=== PATIENT | female | born 1960 | race Asian ===

== ENCOUNTER 2024-11-16 14:00 | Emergency (ER) | payer OTHER ==
[2024-11-16] MEDS ORDERED: KETOROLAC TROMETHAMINE 30 MG/1 ML VIAL ONE (14:37)
[2024-11-16] MEDS ORDERED: LIDOCAINE 5% TOPICAL PATCH ONE (14:38)
[2024-11-16] MEDS: LIDOCAINE 5% TOPICAL PATCH TP ONE (14:45)
[2024-11-16] MEDS: KETOROLAC TROMETHAMINE 30 MG/1 ML VIAL IM ONE (14:46)
[2024-11-16] MEDS ORDERED: METHOCARBAMOL 500 MG TABLET ONE (15:30)
[2024-11-16] MEDS: METHOCARBAMOL 500 MG TABLET PO ONE (15:32)
[2024-11-16 17:10] VITALS: BP 167/80; PULSE 86; RESP 18; TEMP 98.1
[2024-11-16] MEDS ORDERED: LIDOCAINE PATCH REMOVAL MC ONE (22:00)
== END 2024-11-16 17:33 | disposition home or self-care (01) ==
LOC: FER 14:00
PROC: 3E0233Z Introduction of Anti-inflammatory into Muscle, Percutaneous Approach (ICD-10-PCS; principal; 2024-11-16)
DX: M54.6 Pain in thoracic spine (principal)
CPT/HCPCS: 99284-25